=== PATIENT | female | born 1985 | race Caucasian/White ===

== ENCOUNTER 2021-11-18 15:19 | Emergency (ER) | payer OTHER ==
[~2021-11-18] VITALS: Ht 154.9 cm; Wt 69.4 kg
[2021-11-18 15:41] VITALS: BP_SYST 101
--- NOTE | 2021-11-18 15:41 | NUR ---
Pt triaged and placed in waiting room. Dr. Parra made aware.
--- NOTE | 2021-11-18 16:00 | NUR ---
Dr. Parra in waiting room assessing pt.
--- NOTE | 2021-11-18 16:37 | NUR ---
Pt walked ambulatory to H1 for evaluation.
--- NOTE | 2021-11-18 16:38 | NUR ---
Urine collected by ILIA Goldberg.
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
--- NOTE | 2021-11-18 16:58 | NUR ---
Patient transported to radiology via ambulatory, accompanied by dye penetrant testing technician.
--- NOTE | 2021-11-18 17:09 | NUR ---
Pt returned from Xray ambulatory. To bed H1.
--- NOTE | 2021-11-18 17:30 | NUR ---
Patient transported to radiology via ambulatory, accompanied by [employer] R[employer] Supervisor.
--- NOTE | 2021-11-18 17:45 | NUR ---
Returned from radiology, back to [facility].
[2021-11-18] MEDS ORDERED: HYDR-3917 PO (18:10)
[2021-11-18] MEDS ORDERED: IBUP-1969 PO (18:10)
[2021-11-18] MEDS ORDERED: HYDROcodone/ACETAMIN 5-325 MG TAB (NORCO/ VICODIN) PO ONE (18:15)
[2021-11-18] MEDS ORDERED: IBUPROFEN 800 MG TABLET PO ONE (18:15)
[2021-11-18 19:02] VITALS: BP_SYST 121
--- NOTE | 2021-11-18 19:03 | NUR ---
Patient given written and verbal discharge instructions and verbalizes understanding. ER MD discussed with patient the results and treatment provided. Patient in stable condition. ID arm band removed. Rx of Ibuprofen and Randall given. Patient educated on pain management and to follow up with PMD. Pain Scale . Opportunity for questions provided and answered. Medication side effect fact sheet provided.
== END 2021-11-18 19:02 | disposition home or self-care (01) ==
LOC: SED 15:19
DX: S13.4XXA Sprain of ligaments of cervical spine, initial encounter (principal); S43.402A Unspecified sprain of left shoulder joint, initial encounter; S80.12XA Contusion of left lower leg, initial encounter; V89.2XXA Person injured in unspecified motor-vehicle accident, traffic, initial encounter; Y93.89 Activity, other specified; Y92.89 Other specified places as the place of occurrence of the external cause; Y99.8 Other external cause status
CPT/HCPCS: 70450-TC; 72040-TC; 72170-TC; 73030; 76376; 81025; 99284

== ENCOUNTER 2022-11-07 17:35 | Emergency (ER) | payer MEDICAID, OTHER ==
[~2022-11-07] VITALS: Ht 154.9 cm; Wt 65.8 kg
[~2022-11-07 17:35] MED LIST: HYDR-3917 PO; IBUP-1969 PO
[2022-11-07 18:24] VITALS: BP_SYST 122
--- NOTE | 2022-11-07 19:56 | NUR ---
DR. EVANS WITH PATIENT IN WAITING ROOM FOR MSE.
[2022-11-07] MEDS ORDERED: FAMOTIDINE 20 MG TABLET PO ONE (20:00)
[2022-11-07] MEDS ORDERED: MAG-AL HYDROX/SIMETH 30 ML UDC PO ONE (20:00)
[2022-11-07] MEDS ORDERED: DICYCLOMINE HCL 10 MG CAPSULE PO ONE (20:00)
[2022-11-07 20:05] LABS: BASOPHILS # (AUTO) 0.1 K/uL (0.0-0.2); BASOPHILS % (AUTO) 1.1 % (0.0-2.0); EOSINOPHILS # (AUTO) 0.1 K/uL (0.0-0.4); EOSINOPHILS % (AUTO) 1.4 % (0.0-4.0); HEMATOCRIT 40.9 % (36-48); HEMOGLOBIN 13.5 g/dL (12.0-16.0); LYMPHOCYTES # (AUTO) 2.9 K/uL (1.0-5.5); LYMPHOCYTES % (AUTO) 28.2 % (20.5-51.5); MEAN CORPUSCULAR HEMOGLOBIN 27 pg (27-31); MEAN CORPUSCULAR HGB CONC 33 % (32-36); MEAN CORPUSCULAR VOLUME 81 fL (79.0-98.0); MONOCYTES # (AUTO) 0.6 K/uL (0.0-1.0); MONOCYTES % (AUTO) 5.5 % (1.7-9.3); NEUTROPHILS # (AUTO) 6.6 K/uL (1.8-7.7); NEUTROPHILS % (AUTO) 63.8 % (40.0-70.0); PLATELET COUNT (AUTO) 265 K/uL (130-430); RED BLOOD CELL COUNT(AUTO) 5.03 MIL/uL (4.2-6.2); RED CELL DISTRIBUTION WIDTH 14.6 % (9.0-15.0); WHITE BLOOD COUNT (AUTO) 10.3 K/uL (4.8-10.8)
--- NOTE | 2022-11-07 20:05 | NUR ---
Patient to ER bed HB1 to gown for evaluation. Side rails up.
[2022-11-07 20:15] LABS: CREATININE 0.78 mg/dL (0.55-1.30)
--- NOTE | 2022-11-07 20:15 | NUR ---
PT FROM HOME WITH C/O LOWER ABD PAIN X 1 MONTH ACCOMPANIED BY NAUSEA AND DIARRHEA. PT STATES THE PAIN HAS BEEN ON AND OFF, DOES NOT RADIATE. PT WITH STEADY GAIT AND FOLLOWING COMMANDS.
[2022-11-07 20:20] LABS: ALBUMIN 3.6 g/dL (3.4-4.8); TOTAL BILIRUBIN 0.3 mg/dL (0.0-1.0)
[2022-11-07 20:24] LABS: BILIRUBIN,URINE NEGATIVE (NEGATIVE); CLARITY/URINE CLOUDY (CLEAR); COLOR,URINE YELLOW (YELLOW); GLUCOSE,URINE NEGATIVE (NEGATIVE); KETONES,URINE NEGATIVE (NEGATIVE); LEUKOCYTE ESTERASE ,URINE NEGATIVE (NEGATIVE); NITRITE, URINE NEGATIVE (NEGATIVE); PH,URINE 5.5 (5.0-8.0); PROTEIN URINE NEGATIVE (NEGATIVE); UROBILINOGEN,URINE 0.2 (0.2-1.0)
[2022-11-07 20:28] LABS: BLOOD, URINE TRACE (NEGATIVE)
[2022-11-07] MEDS ORDERED: DICYCLOMINE HCL 10 MG/5 ML SOLUTION PO ONE (20:45)
[2022-11-07 20:48] LABS: RBC,URINE NONE SEEN /HPF (0-3)
[2022-11-07 20:49] LABS: BACTERIA,URINE FEW /HPF (None Seen); MUCUS,URINE None Seen /LPF (None Seen); WBC,URINE 0-3 /HPF (0-3)
[2022-11-07] MEDS ORDERED: ANT30 PO (21:06)
[2022-11-07] MEDS ORDERED: LOPE2CAP PO (21:06)
[2022-11-07] MEDS ORDERED: OMEP40CA20 PO (21:06)
[2022-11-07] MEDS ORDERED: DICY10CA13 PO (21:06)
[2022-11-07 21:18] VITALS: BP_SYST 122
--- NOTE | 2022-11-07 21:18 | NUR ---
Patient given written and verbal discharge instructions and verbalizes understanding. ER MD discussed with patient the results and treatment provided. Patient in stable condition. ID arm band removed. Rx of mylanta, bentyl, imodium, and omeprazole given. Patient educated on pain management and to follow up with PMD. Pain Scale 0. Opportunity for questions provided and answered. Medication side effect fact sheet provided.
== END 2022-11-07 21:18 | disposition home or self-care (01) ==
LOC: SED 17:35
DX: R19.7 Diarrhea, unspecified (principal); R10.13 Epigastric pain; Z79.899 Other long term (current) drug therapy
CPT/HCPCS: 36415; 80053; 81000; 81025; 83690; 85025; 99284

== ENCOUNTER 2023-06-06 12:31 | Emergency (ER) | payer MEDICAID ==
[~2023-06-06] VITALS: Ht 154.9 cm; Wt 68.9 kg
[~2023-06-06 12:31] MED LIST changes: +ANT30 PO; +DICY-14 PO; +LOPE2CAP PO; +OMEP40CA20 PO
[2023-06-06 13:18] VITALS: BP_SYST 136; PULSE 75; RESP 16; TEMP 97.9; O2SAT 98
[2023-06-06 15:02] LABS: BILIRUBIN,URINE NEGATIVE (NEGATIVE); BLOOD, URINE 3+ (NEGATIVE); CLARITY/URINE SL CLOUDY (CLEAR); COLOR,URINE YELLOW (YELLOW); GLUCOSE,URINE NEGATIVE (NEGATIVE); KETONES,URINE NEGATIVE (NEGATIVE); LEUKOCYTE ESTERASE ,URINE 2+ (NEGATIVE); NITRITE, URINE NEGATIVE (NEGATIVE); PROTEIN URINE NEGATIVE (NEGATIVE); UROBILINOGEN,URINE 0.2 (0.2-1.0)
[2023-06-06 15:07] LABS: BACTERIA,URINE FEW /HPF (None Seen); MUCUS,URINE None Seen /LPF (None Seen); RBC,URINE 0-3 /HPF (0-3); WBC,URINE 20-50 /HPF (0-3)
[2023-06-06] MEDS ORDERED: NITR-85 PO (15:33)
[2023-06-06] MEDS ORDERED: PHEN-726 PO (15:33)
[2023-06-06 16:02] VITALS: BP_SYST 136; PULSE 75; RESP 16; TEMP 97.9; O2SAT 98
== END 2023-06-06 16:01 | disposition home or self-care (01) ==
LOC: SED 12:31
DX: N39.0 Urinary tract infection, site not specified (principal); R30.0 Dysuria; R31.9 Hematuria, unspecified; R10.30 Lower abdominal pain, unspecified; Z79.899 Other long term (current) drug therapy
CPT/HCPCS: 36415; 81000; 81001; 81015; 87086; 87491; 99283

== ENCOUNTER 2023-12-02 17:57 | Emergency (ER) | payer MEDICAID, OTHER ==
[~2023-12-02] VITALS: Ht 154.9 cm; Wt 69.9 kg
[~2023-12-02 17:57] MED LIST changes: +NITR-85 PO; +PHEN-726 PO
[2023-12-02 18:55] VITALS: BP_SYST 121; PULSE 72; RESP 18; TEMP 97.5; O2SAT 96
[2023-12-02 20:11] LABS: INFLUENZA TYPE A Negative (NEGATIVE); INFLUENZA TYPE B NEGATIVE (NEGATIVE)
[2023-12-02] MEDS ORDERED: AUG875 PO (21:27)
[2023-12-02] MEDS ORDERED: ACET-2634 PO (21:27)
[2023-12-02] MEDS ORDERED: PRED20TA PO (21:27)
[2023-12-02] MEDS: KETOROLAC TROMETHAMINE 30 MG VIAL IM ONE (21:39)
[2023-12-02 21:50] VITALS: BP_SYST 143; PULSE 64; RESP 20; TEMP 98.8; O2SAT 100
== END 2023-12-02 21:50 | disposition home or self-care (01) ==
LOC: SED 17:57
DX: J02.9 Acute pharyngitis, unspecified (principal); Z20.822 Contact with and (suspected) exposure to COVID-19; Z79.899 Other long term (current) drug therapy; Z79.2 Long term (current) use of antibiotics
CPT/HCPCS: 99284; 71045; 87426; 36415; 81025; 96372; 87804 ×2; J1885

== ENCOUNTER 2024-03-21 12:11 | Emergency (ER) | payer OTHER ==
[~2024-03-21] VITALS: Ht 154.9 cm; Wt 69.9 kg
[~2024-03-21 12:11] MED LIST changes: +ACET-2634 PO; +AUG875 PO; +PRED20TA PO
[2024-03-21 13:00] VITALS: BP_SYST 125; PULSE 78; RESP 16; TEMP 98.1; O2SAT 97
[2024-03-21 13:03] LABS: BASOPHILS # (AUTO) 0.1 K/uL (0.0-0.2); BASOPHILS % (AUTO) 1.1 % (0.0-2.0); EOSINOPHILS # (AUTO) 0.1 K/uL (0.0-0.4); EOSINOPHILS % (AUTO) 1.6 % (0.0-4.0); HEMATOCRIT 39.1 % (36-48); HEMOGLOBIN 12.9 g/dL (12.0-16.0); LYMPHOCYTES % (AUTO) 32.5 % (20.5-51.5); MEAN CORPUSCULAR HEMOGLOBIN 27 pg (27-31); MEAN CORPUSCULAR HGB CONC 33 % (32-36); MEAN CORPUSCULAR VOLUME 82 fL (79.0-98.0); MONOCYTES # (AUTO) 0.3 K/uL (0.0-1.0); MONOCYTES % (AUTO) 5.3 % (1.7-9.3); NEUTROPHILS # (AUTO) 3.7 K/uL (1.8-7.7); NEUTROPHILS % (AUTO) 59.5 % (40.0-70.0); PLATELET COUNT (AUTO) 343 K/uL (130-430); RED BLOOD CELL COUNT(AUTO) 4.77 MIL/uL (4.2-6.2); WHITE BLOOD COUNT (AUTO) 6.3 K/uL (4.8-10.8)
[2024-03-21 13:13] LABS: SERUM HCG (QUALITATIVE) NEGATIVE (NEGATIVE)
[2024-03-21 13:15] LABS: INR 0.9 (0.8-1.2); PROTHROMBIN TIME 9.9 SECS (9.5-12.5)
[2024-03-21 13:16] LABS: BILIRUBIN,URINE NEGATIVE (NEGATIVE); BLOOD, URINE 3+ (NEGATIVE); CLARITY/URINE SL CLOUDY (CLEAR); COLOR,URINE RED (YELLOW); GLUCOSE,URINE TRACE (NEGATIVE); KETONES,URINE 1+ (NEGATIVE); LEUKOCYTE ESTERASE ,URINE 2+ (NEGATIVE); NITRITE, URINE POSITIVE (NEGATIVE); PH,URINE 6.5 (5.0-8.0); PROTEIN URINE 3+ (NEGATIVE)
[2024-03-21 13:17] LABS: ALBUMIN 3.6 g/dL (3.4-4.8); BILIRUBIN,DIRECT 0.1 mg/dL (0.0-0.3); CALCIUM 8.8 mg/dL (8.4-11.0); CREATININE 0.66 mg/dL (0.55-1.30); POTASSIUM 4.1 mmol/L (3.5-5.1); TOTAL BILIRUBIN 0.7 mg/dL (0.0-1.0); TOTAL PROTEIN, SERUM 7.6 g/dL (6.4-8.3)
[2024-03-21] MEDS: KETOROLAC TROMETHAMINE 30 MG VIAL IM ONE (13:38)
[2024-03-21] MEDS ORDERED: NITR-85 PO (13:44)
[2024-03-21 13:49] LABS: BACTERIA,URINE None Seen /HPF (None Seen); RBC,URINE >100 /HPF (0-3); WBC,URINE 0-3 /HPF (0-3)
[2024-03-21] MEDS: NITROFURANTOIN MONOHYD/M-CRYST 100 MG CAPSULE (MacroBID) PO ONE (15:30)
[2024-03-21 17:54] VITALS: BP_SYST 125; PULSE 78; RESP 16; TEMP 98.1; O2SAT 97
== END 2024-03-21 15:50 | disposition home or self-care (01) ==
LOC: SED 12:11
DX: N92.0 Excessive and frequent menstruation with regular cycle (principal); N39.0 Urinary tract infection, site not specified; Z79.899 Other long term (current) drug therapy; Z79.2 Long term (current) use of antibiotics
CPT/HCPCS: 99285; 76830; 76857; 80076; 80048; 81001; 84703; 83690; 85025; 85610; 87086; 36415; 96372; J1885; 81000; 81015